=== PATIENT | female | born 1985 | race African-American/Black ===

== ENCOUNTER 2020-08-09 14:24 | Emergency (ER) | payer MEDICAID ==
[~2020-08-09] VITALS: Ht 170.2 cm; Wt 79.0 kg
[2020-08-09 14:28] VITALS: BP 152/99
[2020-08-09] MEDS: ACETAMINOPHEN 325MG TABLET PO ONE (16:21)
== END 2020-08-09 17:18 | disposition home or self-care (01) ==
LOC: ER 14:24
DX: S53.401A Unspecified sprain of right elbow, initial encounter (principal); X58.XXXA Exposure to other specified factors, initial encounter; Y93.9 Activity, unspecified; Y92.9 Unspecified place or not applicable
CPT/HCPCS: 73080; 99283